=== PATIENT | female | born 1990 | race Caucasian/White ===

== ENCOUNTER 2020-11-05 14:46 | Emergency (ER) | payer SELFPAY ==
[~2020-11-05] VITALS: Ht 12.7 cm; Wt 0.5 kg
[2020-11-05 14:57] VITALS: BP 104/69
--- NOTE | 2020-11-05 15:02 | NUR ---
30YO F C/O FACIAL SWELLING X 3 DAYS. PT UNDERWENT DENTAL SURGERY 1 WEEK AGO. IN ED, VSS. WITH PAIN UPON MOVEMENT OF ORAL AREA. PT ASKED TO WAIT IN LOBBY. ERMD MADE AWARE OF PT STATUS. PMH: NONE NKA
[2020-11-05 15:32] VITALS: BP 104/69
== END 2020-11-05 15:32 | disposition home or self-care (01) ==
LOC: MED 14:46
DX: K13.0 Diseases of lips (principal)
CPT/HCPCS: 99283

== ENCOUNTER 2020-11-07 15:53 | Emergency (ER) | payer SELFPAY ==
[~2020-11-07] VITALS: Ht 152.4 cm; Wt 51.3 kg
[2020-11-07 16:12] VITALS: BP 114/66
--- NOTE | 2020-11-07 17:47 | NUR ---
PATIENT LEFT WITHOUT BEING SEEN BY DR. DUBON. NO FURTHER CARE PROVIDED FOR PATIENT.
== END 2020-11-07 17:47 | disposition left against medical advice (07) ==
LOC: MED 15:53
DX: K06.8 Other specified disorders of gingiva and edentulous alveolar ridge (principal); Z53.21 Procedure and treatment not carried out due to patient leaving prior to being seen by health care provider